=== PATIENT | female | born 1985 | race Caucasian/White ===

== ENCOUNTER 2017-10-02 05:35 | Day surgery (SDC) | payer OTHER ==
[~2017-10-02] VITALS: Ht 154.9 cm; Wt 96.7 kg
[2017-10-02 06:15] VITALS: BP 117/72; PULSE 90; TEMP 97.6
[2017-10-02] MEDS ORDERED: PERCOCET 325 MG1 TA2 PO (06:24)
[2017-10-02 09:05] VITALS: BP 104/60; PULSE 87; TEMP 97.7
[2017-10-02 09:20] VITALS: BP 122/75; PULSE 85
[2017-10-02 09:50] VITALS: BP 127/74; PULSE 87
== END 2017-10-02 10:15 | disposition home or self-care (01) ==
LOC: SDCO 05:35
DX: N20.1 Calculus of ureter (principal); Z87.891 Personal history of nicotine dependence; Z68.41 Body mass index [BMI] 40.0-44.9, adult
CPT/HCPCS: C1758; C1769; C2617; J0690; J1100; J1170; J2175; J2405; J2704; J3010; J7120; Q9967